=== PATIENT | female | born 1950 | race Caucasian/White ===

== ENCOUNTER 2025-02-09 12:54 | Day surgery (SDC) | payer MEDICARE ==
[~2025-02-09] VITALS: Ht 157.5 cm; Wt 67.5 kg
[~2025-02-09 12:54] MED LIST: HYDACE5 PO; Lactated Ringer's 1,000 ML IV ONE; propofoL 50 ML IV ONE
[2025-02-09] MEDS ORDERED: LEVSOD100 PO (13:25)
[2025-02-09] MEDS ORDERED: LYLLANA (13:27)
[2025-02-09] MEDS ORDERED: Vitamin C100 M1 (13:28)
[2025-02-09] MEDS ORDERED: GARLIC200 MG (13:28)
[2025-02-09] MEDS ORDERED: Crestor40 MG (13:28)
[2025-02-09] MEDS ORDERED: Lactated Ringer's 1,000 ML IV ONE (14:36)
[2025-02-09 16:01] VITALS: BP 107/70
== END 2025-02-09 16:11 | disposition home or self-care (01) ==
LOC: ORSCSDS 12:54
PROVIDERS: Surgery
PROC: 0DJD8ZZ Inspection of Lower Intestinal Tract, Via Natural or Artificial Opening Endoscopic (ICD-10-PCS; principal; 2025-02-09 14:15)
DX: Z12.11 Encounter for screening for malignant neoplasm of colon (principal); Z90.49 Acquired absence of other specified parts of digestive tract; F41.9 Anxiety disorder, unspecified; E78.5 Hyperlipidemia, unspecified; E03.9 Hypothyroidism, unspecified; G47.33 Obstructive sleep apnea (adult) (pediatric); Z79.899 Other long term (current) drug therapy
CPT/HCPCS: J2704; J7120